=== PATIENT | female | born 1980 | race Caucasian/White ===

== ENCOUNTER 2016-07-27 06:07 | Emergency (ER) | payer MEDICAID ==
[~2016-07-27 06:07] MED LIST: ADDERALL 10 MG10 M1 PO; BACTRIM DS TABL1 TAB PO; BACTRIM DS1 TAB PO; CELEXA40 M1 PO; FLAGYL500 MG PO; HEARTBURN MED; IBUPROFEN800 M1 PO; IRON SUPPLEMEN325 M1 PO; KEFLEX500 MG; MACROBID 100 M100 MG; MACROBID 100 M100 MG PO; MOTRIN600 MG PO; NATALCARE PLUS; NORCO; NORCO 5/3251 TAB PO; OMEPRAZOLE20 MG PO; PERCOCET PO; PRENATAL CAPLE1 EACH PO; PRENATAL1 EACH PO; PROZAC10 MG PO; PYRIDIUM200 MG PO; SARAFEM15 MG PO; VIBRAMYCIN100 MG PO; ZOFRAN ODT4 MG/UDTAB PO; ZOFRAN4 MG
[2016-07-27] MEDS ORDERED: ADDERALL 2020 MG/TAB PO (06:18)
[2016-07-27] MEDS ORDERED: [UNRECOGNIZED DRUG - OTHER] PO (06:19)
[2016-07-27 06:44] LABS: BASO % 0.3 % (0-2); EOS % 3.4 % (0-7); EOSINOPHIL ABSOLUTE COUNT 0.3 tho/cmm (0.0-0.7); HCT-HEMATOCRIT 45.9 % (34.0-49.0); HGB-HEMOGLOBIN 16.1 gm/dl (12.0-15.5); IMMATURE GRANULOCYTES ABSOLUTE 0.02 tho/cmm (0-0.03); IMMATURE GRANULOCYTES PERCENT 0.2 % (0-0.3); LYMPH % 29.2 % (20-45); LYMPH ABSOLUTE COUNT 2.7 tho/cmm (0.8-4.5); MCHC MEAN CORPUSCULAR HGB CONC 35.1 % (32.0-36.0); MCV (MEAN CELL VOLUME) 88.4 fl (82.0-96.0); MEAN PLATELET VOLUME 9.9 cmc (9.4-12.4); MONO % 5.5 % (0-12); MONOCYTE ABSOLUTE COUNT 0.5 tho/cmm (0.0-1.2); NEUTROPHIL ABSOLUTE COUNT 5.6 tho/cmm (1.6-8.0); NEUTROPHIL-AUTOMATED 5.6 tho/cmm (1.6-8.0); NEUTROPHILS % 61.4 % (40-80); PLATELET COUNT 339 tho/cmm (150-450); RED BLOOD COUNT 5.19 mil/cmm (4.00-5.20); RED CELL DISTRIBUTION WIDTH 13.7 % (12.4-16.4); WHITE BLOOD COUNT 9.2 tho/cmm (4.0-10.0)
[2016-07-27 06:52] LABS: PREGNANCY-SERUM NEGATIVE (NEGATIVE)
[2016-07-27 07:00] LABS: ALB/GLOB RATIO 1.1 (0.8-2.0); ALBUMIN 4.3 g/dl (3.5-5.0); ALKALINE PHOSPHATASE 90 U/L (33-138); ALT/SGPT 22 U/L (12-78); ANION GAP 14 mmol/L (0-20); AST/SGOT 23 U/L (10-40); BILIRUBIN,TOTAL 0.2 mg/dl (0-1.5); BLOOD UREA NITROGEN 15 mg/dl (6-24); CALCIUM 8.8 mg/dl (8.5-10.5); CARBON DIOXIDE-VENOUS 24 mmol/L (22-32); CHLORIDE 109 mmol/l (96-110); CREATININE 0.97 mg/dl (0.50-1.10); GLUCOSE 92 mg/dL (70-110); POTASSIUM 4.1 mmol/L (3.7-5.1); SODIUM 143 mmol/L (135-145); eGFR VALUE FOR BLACK 89 mL/Min
[2016-07-27] MEDS ORDERED: COMPAZINE10 MG PO (07:16)
[2016-07-27] MEDS ORDERED: MECLIZINE HCL25 M3 PO (07:16)
[2016-10-22] MEDS ORDERED: CARAFATE1 GM/10 M1 PO (14:31)
[2016-10-22] MEDS ORDERED: OMEPRAZOLE20 M4 PO (14:32)
[2016-10-22] MEDS ORDERED: [UNRECOGNIZED DRUG - REMARK] (14:33)
== END 2016-07-27 07:24 ==
LOC: EDMED 06:07
PROVIDERS: Emergency Medicine
DX: J30.2 Other seasonal allergic rhinitis (principal); R42 Dizziness and giddiness; R11.10 Vomiting, unspecified; F17.200 Nicotine dependence, unspecified, uncomplicated
CPT/HCPCS: J1100; J2405; J7030

== ENCOUNTER 2016-08-19 12:34 | Observation (INO) | payer MEDICAID ==
[~2016-08-19 12:34] MED LIST changes: +ADDERALL 2020 MG/TAB PO; +COMPAZINE10 MG PO; +MECLIZINE HCL25 M3 PO; +[UNRECOGNIZED DRUG - OTHER] PO
[2016-08-19 13:05] LABS: URINE BILIRUBIN NEGATIVE (NEG); URINE BLOOD LARGE (NEG); URINE GLUCOSE (UA) NEGATIVE (NEG); URINE KETONE NEGATIVE (NEG); URINE LEUKOCYTE ESTERASE POSITIVE (NEG); URINE NITRITE NEGATIVE (NEG); URINE PROTEIN MODERATE (NEG)
[2016-08-19 13:14] LABS: URINE APPEARANCE HAZY; URINE BACTERIA 2+; URINE COLOR DARK YELLOW; URINE MUCUS 3+; URINE WBC 50-60 /[HPF] (0-5)
[2016-08-19 13:40] LABS: BASO % 0.2 % (0-2); EOS % 0.3 % (0-7); EOSINOPHIL ABSOLUTE COUNT 0.1 tho/cmm (0.0-0.7); HCT-HEMATOCRIT 45.1 % (34.0-49.0); HGB-HEMOGLOBIN 15.1 gm/dl (12.0-15.5); LYMPH ABSOLUTE COUNT 1.7 tho/cmm (0.8-4.5); MCH (MEAN CORPUSCULAR HGB) 29.3 pg (28.0-32.0); MCHC MEAN CORPUSCULAR HGB CONC 33.5 % (32.0-36.0); MCV (MEAN CELL VOLUME) 87.4 fl (82.0-96.0); MONO % 13.4 % (0-12); MONOCYTE ABSOLUTE COUNT 2.3 tho/cmm (0.0-1.2); NEUTROPHILS % 76.1 % (40-80); PLATELET COUNT 292 tho/cmm (150-450); RED BLOOD COUNT 5.16 mil/cmm (4.00-5.20); RED CELL DISTRIBUTION WIDTH 13.6 % (12.4-16.4); WHITE BLOOD COUNT 17.2 tho/cmm (4.0-10.0)
[2016-08-19 13:57] LABS: ALB/GLOB RATIO 0.8 (0.8-2.0); ALBUMIN 3.7 g/dl (3.5-5.0); ALKALINE PHOSPHATASE 92 U/L (33-138); ALT/SGPT 23 U/L (12-78); ANION GAP 13 mmol/L (0-20); AST/SGOT 15 U/L (10-40); BILIRUBIN,TOTAL 0.5 mg/dl (0-1.5); BLOOD UREA NITROGEN 13 mg/dl (6-24); CALCIUM 8.7 mg/dl (8.5-10.5); CARBON DIOXIDE-VENOUS 23 mmol/L (22-32); CHLORIDE 104 mmol/l (96-110); CREATININE 1.28 mg/dl (0.50-1.10); GLUCOSE 117 mg/dL (70-110); POTASSIUM 3.9 mmol/L (3.7-5.1); SODIUM 136 mmol/L (135-145); eGFR VALUE FOR BLACK 64 mL/Min
[2016-08-19] MEDS ORDERED: TOPAMAX100 M2 PO (14:05)
[2016-08-19] MEDS ORDERED: XANAX0.5 M1 PO (14:05)
[2016-08-19] MEDS ORDERED: GEODON20 M1 PO (14:05)
[2016-08-19] MEDS ORDERED: MECLIZINE HCL25 M3 PO (14:06)
[2016-08-19] MEDS ORDERED: COMPAZINE10 MG PO (14:07)
[2016-08-19 14:10] LABS: PROCALCITONIN 0.26 ng/ml (0.05-0.09)
[2016-08-20 05:47] LABS: BASO % 0.3 % (0-2); EOS % 1.1 % (0-7); EOSINOPHIL ABSOLUTE COUNT 0.1 tho/cmm (0.0-0.7); HCT-HEMATOCRIT 36.2 % (34.0-49.0); HGB-HEMOGLOBIN 12.2 gm/dl (12.0-15.5); IMMATURE GRANULOCYTES ABSOLUTE 0.02 tho/cmm (0-0.03); IMMATURE GRANULOCYTES PERCENT 0.2 % (0-0.3); LYMPH % 16.7 % (20-45); LYMPH ABSOLUTE COUNT 2.2 tho/cmm (0.8-4.5); MCH (MEAN CORPUSCULAR HGB) 29.8 pg (28.0-32.0); MCHC MEAN CORPUSCULAR HGB CONC 33.7 % (32.0-36.0); MCV (MEAN CELL VOLUME) 88.5 fl (82.0-96.0); MEAN PLATELET VOLUME 9.9 cmc (9.4-12.4); MONOCYTE ABSOLUTE COUNT 1.8 tho/cmm (0.0-1.2); NEUTROPHIL ABSOLUTE COUNT 8.8 tho/cmm (1.6-8.0); NEUTROPHIL-AUTOMATED 8.8 tho/cmm (1.6-8.0); NEUTROPHILS % 67.7 % (40-80); PLATELET COUNT 235 tho/cmm (150-450); RED BLOOD COUNT 4.09 mil/cmm (4.00-5.20); RED CELL DISTRIBUTION WIDTH 13.5 % (12.4-16.4)
[2016-08-20 06:00] LABS: ANION GAP 13 mmol/L (0-20); BLOOD UREA NITROGEN 8 mg/dl (6-24); CALCIUM 7.5 mg/dl (8.5-10.5); CARBON DIOXIDE-VENOUS 19 mmol/L (22-32); CHLORIDE 110 mmol/l (96-110); CREATININE 1.01 mg/dl (0.50-1.10); GLUCOSE 99 mg/dL (70-110); POTASSIUM 3.3 mmol/L (3.7-5.1); SODIUM 139 mmol/L (135-145); eGFR VALUE FOR BLACK 85 mL/Min
[2016-08-20 06:21] LABS: PROCALCITONIN 0.15 ng/ml (0.05-0.09)
--- NOTE | 2016-08-20 20:32 | NUR ---
VIRTUAL CARE NOTE: PT. IS IN BED, STATES HER PAIN IS OK AND JUST TOOK SOME PAIN MEDS. DENIES QUESTIONS OR CONCERNS AT THIS TIME. INSTRUCTED TO CALL FOR FUTURE NEEDS. STATES VERBAL UNDERSTANDING.
[2016-08-21 06:55] LABS: BASO % 0.1 % (0-2); EOS % 5.4 % (0-7); EOSINOPHIL ABSOLUTE COUNT 0.5 tho/cmm (0.0-0.7); HCT-HEMATOCRIT 36.3 % (34.0-49.0); HGB-HEMOGLOBIN 12.3 gm/dl (12.0-15.5); IMMATURE GRANULOCYTES ABSOLUTE 0.02 tho/cmm (0-0.03); IMMATURE GRANULOCYTES PERCENT 0.2 % (0-0.3); LYMPH % 25.9 % (20-45); LYMPH ABSOLUTE COUNT 2.3 tho/cmm (0.8-4.5); MCH (MEAN CORPUSCULAR HGB) 30.1 pg (28.0-32.0); MCHC MEAN CORPUSCULAR HGB CONC 33.9 % (32.0-36.0); MCV (MEAN CELL VOLUME) 88.8 fl (82.0-96.0); MEAN PLATELET VOLUME 9.5 cmc (9.4-12.4); MONO % 9.7 % (0-12); MONOCYTE ABSOLUTE COUNT 0.8 tho/cmm (0.0-1.2); NEUTROPHIL ABSOLUTE COUNT 5.1 tho/cmm (1.6-8.0); NEUTROPHIL-AUTOMATED 5.1 tho/cmm (1.6-8.0); NEUTROPHILS % 58.7 % (40-80); PLATELET COUNT 250 tho/cmm (150-450); RED BLOOD COUNT 4.09 mil/cmm (4.00-5.20); WHITE BLOOD COUNT 8.7 tho/cmm (4.0-10.0)
[2016-08-21 07:05] LABS: ANION GAP 12 mmol/L (0-20); BLOOD UREA NITROGEN 7 mg/dl (6-24); CALCIUM 7.8 mg/dl (8.5-10.5); CARBON DIOXIDE-VENOUS 20 mmol/L (22-32); CHLORIDE 115 mmol/l (96-110); CREATININE 0.85 mg/dl (0.50-1.10); GLUCOSE 96 mg/dL (70-110); SODIUM 143 mmol/L (135-145); eGFR VALUE FOR BLACK >90 mL/Min
[2016-08-21 07:09] LABS: POTASSIUM 4.3 mmol/L (3.7-5.1)
[2016-08-21] MEDS ORDERED: NORCO 5-325 TA1 EACH PO (12:34)
[2016-08-21] MEDS ORDERED: CIPRO500 M2 PO (12:35)
[2016-10-22] MEDS ORDERED: CARAFATE1 GM/10 M1 PO (14:31)
[2016-10-22] MEDS ORDERED: OMEPRAZOLE20 M4 PO (14:32)
[2016-10-22] MEDS ORDERED: [UNRECOGNIZED DRUG - REMARK] (14:33)
== END 2016-08-21 13:05 ==
LOC: EDMED 12:34 → EMR2 16:51 → 5WD 17:25
PROVIDERS: Emergency Medicine; Family Medicine; ADMIT Family Medicine
DX: A41.9 Sepsis, unspecified organism (principal); N17.9 Acute kidney failure, unspecified; N12 Tubulo-interstitial nephritis, not specified as acute or chronic; F41.9 Anxiety disorder, unspecified; F32.9 Major depressive disorder, single episode, unspecified; F90.9 Attention-deficit hyperactivity disorder, unspecified type; F17.210 Nicotine dependence, cigarettes, uncomplicated; E83.51 Hypocalcemia
CPT/HCPCS: G0378; J1650; J2270; J2405; J2543; J7030